=== PATIENT | female | born 1990 | race Asian ===

== ENCOUNTER 2018-11-16 12:25 | Emergency (ER) | payer OTHER ==
[~2018-11-16] VITALS: Ht 162.6 cm; Wt 63.6 kg
[2018-11-16 12:31] VITALS: BP 122/51
[2018-11-16] MEDS ORDERED: CEPH-572 PO (13:07)
[2018-11-16] MEDS ORDERED: TETanus/Pertussis (Acell)/Diphther VAC/PF (Tdap-Adult) 0.5ml syringe IM ONE (13:10)
== END 2018-11-16 13:21 | disposition home or self-care (01) ==
LOC: ER 12:25
DX: S61.217A Laceration without foreign body of left little finger without damage to nail, initial encounter (principal); Z88.8 Allergy status to other drugs, medicaments and biological substances; Z79.899 Other long term (current) drug therapy; W26.8XXA Contact with other sharp object(s), not elsewhere classified, initial encounter; Y93.89 Activity, other specified; Y92.89 Other specified places as the place of occurrence of the external cause; Y99.8 Other external cause status
CPT/HCPCS: 90471; 90715; 99283

== ENCOUNTER 2021-01-12 20:01 | Emergency (ER) | payer BC ==
[~2021-01-12] VITALS: Ht 162.6 cm; Wt 68.2 kg
[2021-01-12 21:54] VITALS: BP 102/75
== END 2021-01-12 21:59 | disposition home or self-care (01) ==
LOC: ER 20:01
DX: R07.81 Pleurodynia (principal); R06.02 Shortness of breath; Z72.89 Other problems related to lifestyle; Z88.1 Allergy status to other antibiotic agents
CPT/HCPCS: 71101; 99283

== ENCOUNTER 2022-03-15 14:29 | Emergency (ER) | payer BC, MEDICAID | END 2022-03-15 16:00 | disposition left against medical advice (07) | LOC: ER 14:29 | DX: R10.9 Unspecified abdominal pain (principal); Z53.21 Procedure and treatment not carried out due to patient leaving prior to being seen by health care provider ==